=== PATIENT | female | born 1970 | race Caucasian/White ===

== ENCOUNTER 2016-06-11 18:16 | Emergency (ER) | payer BC, OTHER ==
[~2016-06-11] VITALS: Ht 168.9 cm; Wt 69.2 kg
[2016-06-11 18:54] VITALS: TEMP 36.3; Ht 168.9 cm; Wt 69.2 kg
[2016-06-11] MEDS ORDERED: MoRPHine SULFATE 4 MG/ML 1 ML CARP\\VIAL IV STA (20:59)
[2016-06-11] MEDS ORDERED: KETOROLAC TROMETHAMINE 30 MG/ML VIAL IV STA (20:59)
[2016-06-11] MEDS ORDERED: ONDANSETRON INJ 2 MG/ML 2 ML VIAL IV STA (20:59)
[2016-06-11] MEDS ORDERED: SODIUM CHLORIDE 0.9% 1000ML 1,000 ML IV STA (20:59)
[2016-06-11 21:19] LABS: BASO % 0.5 %; BASO ABS # 0.02 K/uL (0-0.2); COMPLETE YES; EOS % 0.7 %; HEMATOCRIT 41.8 % (37-47); LYMPH % 35.8 %; LYMPH ABS # 1.57 K/uL (1.2-3.4); MEAN CELL VOLUME 93.3 fL (80-100); MEAN CORPUSCULAR HEMOGLOBIN 31.5 pg (25-34); MEAN CORPUSCULAR HGB CONC 33.7 g/dl (32-36); MEAN PLATELET VOLUME 10.2 fL (7.4-10.4); MONO % 9.6 %; NEUT % 53.4 %; PLATELET COUNT 179 K/uL (130-400); RED BLOOD COUNT 4.48 M/uL (4.2-5.4); WHITE BLOOD COUNT 4.39 K/uL (4.8-10.8)
[2016-06-11 21:26] LABS: ALT/SGPT 24 U/L (12-78); BLOOD UREA NITROGEN 10 mg/dl (7-18); BUN/CREATININE RATIO 11.5 (10-20); CALCIUM 8.8 mg/dl (8.5-10.1); CARBON DIOXIDE 29 mmol/L (21-32); CHLORIDE 100 mmol/L (98-107); CREATININE 0.89 mg/dl (0.60-1.20); GLUCOSE 98 mg/dl (70-99); POTASSIUM 3.9 mmol/L (3.5-5.1); SODIUM 138 mmol/L (136-145)
[2016-06-11 21:27] LABS: URINE APPEARANCE CLEAR (CLEAR); URINE BILIRUBIN NEG (NEG); URINE COLOR YELLOW; URINE EPITHELIAL CELL AUTO >30 /lpf (0-5); URINE NITRITE NEG (NEG); URINE PH 5.5 (4.5-7.5); UROBILINOGEN NEG (NEG); ZZUR CULT IF INDIC CLEAN CATCH NO
[2016-06-11 21:28] LABS: MANUAL MICROSCOPIC REQUIRED? NO; REVIEW REQ? NO
[2016-06-11 21:29] LABS: ALKALINE PHOSPHATASE 46 U/L (45-117); AST/SGOT 27 U/L (15-37)
--- NOTE | 2016-06-11 22:24 | DIAGNOSTIC IMAGING REPORT ---
CT OF THE ABDOMEN AND PELVIS WITHOUT CONTRAST, STONE PROTOCOL CLINICAL HISTORY: Right flank and low back pain. COMPARISON STUDY: None. TECHNIQUE: Helical axial images of the abdomen and pelvis were obtained without IV or oral contrast according to renal stone protocol. FINDINGS: No renal, ureteral or bladder calculi are present. The course of the ureters is difficult to follow on this exam but no ureteral calculi are identified. An intrauterine device is appropriately positioned. A 3.8 cm cystic left adnexal lesion is noted. Evaluation of the abdomen and pelvis is suboptimal on this unenhanced exam. Unenhanced images of liver, spleen, adrenal glands and pancreas are normal. There is no evidence for a bowel obstruction. There is a moderate amount of stool within the colon. The appendix is normal. Pelvic calcifications likely reflect phleboliths. There is no evidence for a bowel obstruction. Skeletal structures are unremarkable. IMPRESSION: 1. No urinary calculi or hydronephrosis. 2. Normal appendix. 3. Appropriately positioned intrauterine device. 4. 3.8 cm suspected left ovarian cyst. A follow-up pelvic ultrasound in 6 weeks to ensure resolution is recommended. Electronically signed by: Frankie Anderson M.D. 06/11/2016 10:23 PM Dictated Date/Time: 06/11/2016 10:18 PM
[2016-06-11] MEDS ORDERED: MULT-1027 PO (22:26)
[2016-06-11] MEDS ORDERED: NF406 PO (22:26)
[2016-06-11 22:34] VITALS: BP 81/40; PULSE 74; O2SAT 99
[2016-06-11] MEDS ORDERED: HYDR-5688 PO (22:39)
--- NOTE | 2016-06-11 22:40 | EMERGENCY ROOM VISIT NOTE ---
History First contact with patient: 20:53 Chief Complaint: ABDOMINAL PAIN Stated Complaint: PAIN IN ABD AREA AND BACK,CHILLS Nursing Triage Summary: Patient c/o bilateral lower back pain and abdominal pain. Today all aches went away from flu except back pain and it hurts to sit. Patient states she is taking Tamiflu but tested negative for the flu. Achy since Thurs or Fri. Pt denies urinary symptoms. "Cough is getting better". Productive. History of Present Illness The patient is a 45 year old female who presents to the Emergency Room with complaints of lower abdominal pain and low back pain. The patient states that she has had body aches that started Saturday. She also had chills. She went to [facility] yesterday and was prescribed Tamiflu. The patient just started the Tamiflu today. The patient states that her cough is better. She states the achiness is better but she still has achiness in her lower abdomen in her low back. She states the right is worse in the left. The patient currently denies any fever, chest pain or shortness of breath. The patient denies any urinary symptoms of frequency, urgency, dysuria or hematuria. The patient denies any history of kidney stones. Review of Systems 10 system review was performed and was negative unless stated otherwise history of present illness. Past Medical/Surgical History Social History Alcohol Use: occasionally Drug Use: none Marital Status: Housing Status: lives with family Occupation Status: employed Current/Historical Medications Scheduled Multiple Vitamin (Multi Vitamin), 1 TAB PO DAILY Oseltamivir Phosphate (Tamiflu), 75 MG PO BID Allergies Coded Allergies: No Known Allergies (Unverified , 06/11/16) Physical Exam Vital Signs Date Time Temp Pulse Resp B/P Pulse Ox O2 Delivery O2 Flow Rate FiO2 06/11/16 20:52 69 20 109/58 100 06/11/16 18:54 36.3 64 18 104/69 97 Room Air Physical Exam GENERAL: 45-year-old white female appears in no acute distress. MENTAL Status: Alert and oriented 3. MOUTH: Mucosa is moist NECK: Supple, no lymphadenopathy noted. No carotid bruits noted. LUNGS: Clear auscultation without wheezes rales or rhonchi. CARDIAC: Regular rate and rhythm without murmur. Pulses is full and equal throughout. BACK: No CVA tenderness noted. ABDOMEN: Positive bowel sounds all 4 quadrants. Soft, mild tenderness palpation in the right flank area otherwise nontender to palpation without organomegaly or masses. EXTREMITIES: No cyanosis or edema noted. Medical Decision & Procedures ER Provider Diagnostic Interpretation: CT OF THE ABDOMEN AND PELVIS WITHOUT CONTRAST, STONE PROTOCOL CLINICAL HISTORY: Right flank and low back pain. COMPARISON STUDY: None. TECHNIQUE: Helical axial images of the abdomen and pelvis were obtained without IV or oral contrast according to renal stone protocol. FINDINGS: No renal, ureteral or bladder calculi are present. The course of the ureters is difficult to follow on this exam but no ureteral calculi are identified. An intrauterine device is appropriately positioned. A 3.8 cm cystic left adnexal lesion is noted. Evaluation of the abdomen and pelvis is suboptimal on this unenhanced exam. Unenhanced images of liver, spleen, adrenal glands and pancreas are normal. There is no evidence for a bowel obstruction. There is a moderate amount of stool within the colon. The appendix is normal. Pelvic calcifications likely reflect phleboliths. There is no evidence for a bowel obstruction. Skeletal structures are unremarkable. IMPRESSION: 1. No urinary calculi or hydronephrosis. 2. Normal appendix. 3. Appropriately positioned intrauterine device. 4. 3.8 cm suspected left ovarian cyst. A follow-up pelvic ultrasound in 6 weeks to ensure resolution is recommended. Laboratory Results 06/11/16 20:56 Red Blood Count 4.48, Mean Corpuscular Volume 93.3, Mean Corpuscular Hemoglobin 31.5, Mean Corpuscular Hemoglobin Concent 33.7, Mean Platelet Volume 10.2, Neutrophils (%) (Auto) 53.4, Lymphocytes (%) (Auto) 35.8, Monocytes (%) (Auto) 9.6, Eosinophils (%) (Auto) 0.7, Basophils (%) (Auto) 0.5, Neutrophils # (Auto) 2.35, Lymphocytes # (Auto) 1.57, Monocytes # (Auto) 0.42, Eosinophils # (Auto) 0.03, Basophils # (Auto) 0.02 06/11/16 20:56 Test 06/11/16 20:56 White Blood Count 4.39 K/uL (4.8-10.8) Red Blood Count 4.48 M/uL (4.2-5.4) Hemoglobin 14.1 g/dL (12.0-16.0) Hematocrit 41.8 % (37-47) Mean Corpuscular Volume 93.3 fL (80-100) Mean Corpuscular Hemoglobin 31.5 pg (25-34) Mean Corpuscular Hemoglobin Concent 33.7 g/dl (32-36) Platelet Count 179 K/uL (130-400) Mean Platelet Volume 10.2 fL (7.4-10.4) Neutrophils (%) (Auto) 53.4 % Lymphocytes (%) (Auto) 35.8 % Monocytes (%) (Auto) 9.6 % Eosinophils (%) (Auto) 0.7 % Basophils (%) (Auto) 0.5 % Neutrophils # (Auto) 2.35 K/uL (1.4-6.5) Lymphocytes # (Auto) 1.57 K/uL (1.2-3.4) Monocytes # (Auto) 0.42 K/uL (0.11-0.59) Eosinophils # (Auto) 0.03 K/uL (0-0.5) Basophils # (Auto) 0.02 K/uL (0-0.2) RDW Standard Deviation 44.6 fL (36.4-46.3) RDW Coefficient of Variation 13.0 % (11.5-14.5) Immature Granulocyte % (Auto) 0.0 % Immature Granulocyte # (Auto) 0.00 K/uL (0.00-0.02) Urine Color YELLOW Urine Appearance CLEAR (CLEAR) Urine pH 5.5 (4.5-7.5) Urine Specific [place] 1.010 (1.000-1.030) Urine Protein NEG (NEG) Urine Glucose (UA) NEG (NEG) Urine Ketones NEG (NEG) Urine Occult Blood TRACE (NEG) Urine Nitrite NEG (NEG) Urine Bilirubin NEG (NEG) Urine Urobilinogen NEG (NEG) Urine Leukocyte Esterase TRACE (NEG) Urine WBC (Auto) 1-5 /hpf (0-5) Urine RBC (Auto) 0-4 /hpf (0-4) Urine Hyaline Casts (Auto) 1-5 /lpf (0-5) Urine Epithelial Cells (Auto) >30 /lpf (0-5) Urine Bacteria (Auto) NEG (NEG) Anion Gap 9.0 mmol/L (3-11) Est Creatinine Clear Calc Drug Dose 76.2 ml/min Estimated GFR () 90.7 Estimated GFR (Non- 78.3 BUN/Creatinine Ratio 11.5 (10-20) Calcium Level 8.8 mg/dl (8.5-10.1) Total Bilirubin 0.3 mg/dl (0.2-1) Direct Bilirubin < 0.1 mg/dl (0-0.2) Aspartate Amino Transf (AST/SGOT) 27 U/L (15-37) Alanine Aminotransferase (ALT/SGPT) 24 U/L (12-78) Alkaline Phosphatase 46 U/L (45-117) Total Protein 7.6 gm/dl (6.4-8.2) Albumin 4.0 gm/dl (3.4-5.0) Lipase 195 U/L (73-393) Medications Administered Medications (Trade) Dose Ordered Sig/Tracy Route Start Time Stop Time Status Last Admin Dose Admin Sodium Chloride (Nss 1000ml) 1,000 ml @ 999 mls/hr Q1H1M STAT IV 06/11/16 20:59 06/11/16 21:59 DC 06/11/16 22:08 999 MLS/HR Ketorolac Tromethamine (Toradol Inj) 30 mg NOW STAT IV 06/11/16 20:59 06/11/16 21:02 DC 06/11/16 22:09 30 MG Morphine Sulfate (MoRPHine SULFATE INJ) 4 mg NOW STAT IV 06/11/16 20:59 06/11/16 21:02 DC 06/11/16 22:09 4 MG Ondansetron HCl (Zofran Inj) 4 mg NOW STAT IV 06/11/16 20:59 06/11/16 21:02 DC 06/11/16 22:09 4 MG ED Course The patient was evaluated. IV access was obtained. The patient was given 1 L normal saline wide-open. The patient was given Toradol 30 mg IV, morphine 4 mg IV and Zofran 4 mg IV. CBC differential, renal profile, LFTs and lipase levels were ordered. Urinalysis was ordered. Labs are reviewed and were unremarkable. Urinalysis revealed a trace of blood and a trace of leukocytes and no bacteria. A culture is pending. CT stone study was ordered and interpreted by the radiologist as above without any evidence of ureteral calculi. Appendix was normal. There was a 3.8 cm left ovarian cyst. A follow- up ultrasound in 6 weeks is recommended. The patient was reevaluated was feeling better. The patient was discharged home in stable condition. The patient was given a [place] home pack to take as needed. Medical Decision Differential diagnoses include reflux, gastritis, gastroenteritis, pancreatitis , cholelithiasis, cholecystitis, appendicitis, mesenteric ischemia, pyelonephritis, urinary tract infection, renal colic, diverticulitis, shingles, bowel obstruction, intussusception, hernia, ovarian torsion, ruptured ovarian cyst, ectopic , . Impression Primary Impression: Ovarian cyst Departure Information Dispostion Home / Self-Care Condition GOOD Prescriptions Hydrocodone/Acetaminophen 5MG/325MG ([place] 5MG/325MG) Tab 1-2 TABLET PO Q6 Y for Pain, #20 TAB For Initial Treatment Prov: Ramona Francis PA-C 06/11/16 Referrals Payton Dickerson M.D. (PCP) Forms Call Back Authorization, HOME CARE DOCUMENTATION FORM, IMPORTANT VISIT INFORMATION Patient Instructions [employer] Additional Instructions Push fluids, stay well-hydrated. Ibuprofen 600 mg every 6 hours with food for pain. Take [place] as needed for more severe pain. Do not drive while taking the [place]. Call your information systems auditor tomorrow for follow-up appointment. If you have any worsening of symptoms, return to ER. Problem Qualifiers Primary Impression: Ovarian cyst Laterality: left Qualified Codes: N83.202 - Unspecified ovarian cyst, left side
[2016-06-11] MEDS ORDERED: NORCO 5/325MG HOME PACK PO ONE (22:45)
== END 2016-06-11 23:09 | disposition home or self-care (01) ==
LOC: C.EDB 18:17 → C.EDA 23:09
DX: N83.202 Unspecified ovarian cyst, left side (principal); Z98.891 History of uterine scar from previous surgery